=== PATIENT | female | born 1990 | race Caucasian/White ===

== ENCOUNTER 2024-08-09 17:27 | Emergency (ER) | payer SELFPAY ==
[2024-08-09 17:30] VITALS: BP 119/83
--- NOTE | 2024-08-09 18:30 | ED.GENMED ---
History of Present Illness
General
Chief Complaint: Abdominal Symptoms
Source: patient
Exam Limitations: none
Time Seen by Provider: 08/09/24 18:28
Nursing documentation reviewed up to this point in time: agreed with
History of Present Illness
History of Present Illness:
Patient presents to ED secondary to sudden onset of bodyaches, chills, nausea, and inability to eat since last night. Denies headache. Denies sore throat. Denies coughing. Denies vomiting or diarrhea. Denies rash. Denies sick contact. Denies
recent travel. Patient otherwise is healthy, without any significant medical history. Upon arrival, patient is found to be febrile, which she was not aware of.
Past History
Past History
ED Past Medical History: Psychiatric and Other
ED Past Surgical History: Appendectomy
Patient has exhibited threatening behavior?: No
PSI?: No
Social History
Tobacco: Smoker
Alcohol: None
Drug: None
Personal: Single
Living: with roommate
Employment: Not employed
Family History
Family History: Other
Review of Systems
Review of Systems
Allergies reviewed?: Yes
All Other Systems: ROS reviewed and negative except as documented in HPI and ROS
Constitutional: Reports chills
EENT: Reports no symptoms
Respiratory: Reports no symptoms; Denies cough or trouble breathing
Cardiac: Reports no symptoms; Denies chest pain
ABD/GI: Reports nausea; Denies abdominal pain or diarrhea
: Reports no symptoms
Musculoskeletal: Reports muscle pain
Skin: Reports no symptoms
Neurological: Reports no symptoms; Denies dizzy or headache
Phy Exam
Physical Exam
Physical Exam:
Physical Exam
General: mild distress, not acutely ill. febrile
Head: nc/at. eomi
Neck: supple. no meningeal signs.
Heart: s1/s2 regular rate and rhythm, no murmur.
Lungs: no acute respiratory distress. clear bilaterally
Abdomen: normal bowel sounds. not tender.
Neuro: alert and oriented x 3. no focal neurological deficits
Skin: no rash
Psychiatric: well kept. interactive and cooperative
Extremities: no edema. no calf tenderness.
Course
Orders/Labs/Results
Orders:
Orders
08/09/24 17:33
Electrocardiogram (*1) Urgent
Reason for Study: Chest Pain
EKG- Treatment ONCE
Test Result ONCE
08/09/24 18:40
COVID-19 Antigen Urgent
Source: Nasal Swab
Complete Blood Count/With Diff Urgent
Comprehensive Metabolic Panel Urgent
HCG, Serum Qualitative Screen Urgent
Troponin I Urgent
Influenza A+B Rapid Molecular Urgent
BETI Source: Nasal Swab
Specimen Description:
08/09/24 18:56
0.9% Sodium Chloride 1000 ml [Nss] 1,000 ml IV BOLUS
Ketorolac [Toradol] 15 mg IV NOW STA
Ondansetron Injectable [Zofran] 4 mg IV NOW STA
Pantoprazole [Protonix IV] 40 mg IV NOW STA
Abnormal Lab Results
08/09/24
18:40
MCH 31.2 H pg
(27.0-31.0)
Absolute Lymphs (auto) 0.7 L 10^3/uL
(1.2-3.4)
Neutrophils % 75.7 H %
(42.2-75.2)
Lymphocytes % 14.8 L %
(20.5-51.1)
BUN 5 L mg/dl
(7-17)
Creatinine 0.5 L mg/dL
(0.6-1.0)
Glucose 111 H mg/dl
(70-99)
08/09/24 18:40
08/09/24 18:40
Vital Signs
Initial and Last Documented VS:
Initial Vital Signs
Temp Pulse Resp BP Pulse Ox
100.6 F H 97 18 119/83 97
08/09/24 17:30 08/09/24 17:30 08/09/24 17:30 08/09/24 17:30 08/09/24 17:30
Last Documented Vital Signs
Temp Pulse Resp BP Pulse Ox
100.6 F H 78 19 129/66 98
08/09/24 17:30 08/09/24 20:38 08/09/24 20:38 08/09/24 20:38 08/09/24 20:38
MDM/Problems Addressed
MDM/Problems Addressed:
History and exam consistent with symptoms, likely secondary to influenza. Patient otherwise remains hemodynamically stable and nontoxic-appearing. Patient will be discharged home with prescription for Tamiflu, to consider taking at home. Side
effects discussed as well of Tamiflu.
*Critical Care Note
Total Time (30-74mins, 75-104mins- exclusive of procedures): Not Applicable
ED Attending Note
-
Portions of this chart may have been created with voice recognition software.� Occasional wrong word or��sound alike� substitutions may have occurred due to the inherent limitations of voice recognition software.
Discharge Plan
Departure
Patient Disposition: Home (Routine Discharge)
Date of Disposition: 08/09/24
Time of Disposition: 20:06
Patient with high blood pressure during this ER visit?: No
Condition: Good
Discharge Problem:
Influenza
Instructions: Flu in adults - Discharge instructions
Prescriptions:
New
oseltamivir [Tamiflu] 75 mg capsule
75 mg PO BID 5 Days Qty: 10 0RF
ondansetron 4 mg Tablet,Disintegrating
4 mg PO TIDPRN PRN (Reason: nausea/vomiting) Qty: 12 0RF
No Action
gabapentin 800 mg Tablet
800 mg PO TID
bupropion HCl [Wellbutrin XL] 300 mg Tablet Extended Release 24 Hr
300 mg PO DAILY
methadone
PO DAILY
Patient Comments:
pt is on a 'blind taper' so she does not know how many mg she takes daily
Protonix
1 tab PO QPM
Patient Comments:
pt does not know mg
ondansetron 4 mg tablet,disintegrating
4 mg PO Q8H PRN (Reason: nausea and vomiting) Qty: 10 0RF
Referrals:
NONE,* [Family Provider] -
Activity Restrictions/Additional Instructions:
As discussed, please follow-up with your primary care physician with any further concerns.
Interventions
Interventions:
*Risk Screen - Suicide Last Done: 08/09/24 17:30
*General Assessment Last Done: 08/09/24 17:30
*Neglect/Abuse Screening Last Done: 08/09/24 17:30
ED- Fall Risk Assessment Last Done: 08/09/24 18:42
*ED COVID-19 Vaccine History Last Done: 08/09/24 17:30
*Nursing Disposition Last Done: 08/09/24 20:42
[facility] Assessment Last Done: 08/09/24 20:39
Discharge Date and Time
Discharge Date/Time: 08/09/24 20:44
Print Language: MONEGASQUE
[2024-08-09 18:55] LABS: % Basophils 0.2 % (0-2); % Eosinophils 0.2 % (0-6); % Immature Granulocytes 0.2 % (0-0.5); % Lymphocytes 14.8 % (20.5-51.1); % Monocytes 8.9 % (1.7-9.3); % Neutrophils 75.7 % (42.2-75.2); Absolute Lymphocytes 0.7 10^3/uL (1.2-3.4); Absolute Monocytes 0.4 10^3/uL (0.1-0.6); Absolute Neutrophils 3.7 10^3/uL (1.4-6.5); Hematocrit 39.4 % (37.0-47.0); Hemoglobin 13.9 g/dL (12.0-16.0); Mean Corp Hgb Conc. 35.3 g/dL (33.0-37.0); Mean Corpuscular Hgb 31.2 pg (27.0-31.0); Mean Corpuscular Volume 88.3 fL (81.0-99.0); Mean Platelet Volume 8.8 fL (7.4-10.4); Nucleated Red Blood Cells % 0 %; Platelet Count 180 10^3/uL (130-400); Red Blood Cell Count 4.46 10^6/uL (4.20-5.40); Red Cell Dist. Width 11.7 % (11.5-14.5); White Blood Cell Count 4.9 10^3/uL (4.8-10.8)
[2024-08-09] MEDS: NSS 1000 IV (19:05)
[2024-08-09] MEDS: TORADOL 15 MG IV (19:05)
[2024-08-09] MEDS: PROTONIX IV 40 MG IV (19:05)
[2024-08-09] MEDS: ZOFRAN 4 MG IV (19:05)
[2024-08-09 19:11] LABS: HCG, Serum Qualitative Screen Negative
[2024-08-09 19:18] LABS: ALT (SGPT) 30 U/L (0-35); AST (SGOT) 34 U/L (14-36); Albumin 4.4 g/dl (3.5-5.0); Alkaline Phosphatase 49 U/L (38-126); Blood Urea Nitrogen 5 mg/dl (7-17); COVID-19 Antigen Negative (Negative); Calcium 8.9 mg/dl (8.4-10.2); Carbon Dioxide 26 mmol/L (22-30); Chloride 102 mmol/L (98-107); Glucose 111 mg/dl (70-99); Potassium 3.9 mmol/L (3.5-5.1); Sodium 135 mmol/L (135-145); Total Bilirubin 0.5 mg/dl (0.2-1.3); Total Protein 7.4 g/dl (6.3-8.2); eGFR > 60.00
[2024-08-09 19:24] LABS: Troponin I < 0.012 ng/ml
[2024-08-09 20:38] VITALS: BP 129/66
== END 2024-08-09 20:44 | disposition home or self-care (01) ==
LOC: EMR 17:27
PROVIDERS: EMERGENCY PHYSICIAN Emergency Medicine
DX: J10.1 Influenza due to other identified influenza virus with other respiratory manifestations (principal); R11.0 Nausea; F17.200 Nicotine dependence, unspecified, uncomplicated; Z90.49 Acquired absence of other specified parts of digestive tract
CPT/HCPCS: 96374; 96375; 96361; 99284; 80053; 84484; 84703; 85025; 87502; 87811; 93005

== ENCOUNTER 2024-12-21 16:31 | Emergency (ER) | payer OTHER, SELFPAY ==
[2024-12-21 16:34] VITALS: BP 127/80
[2024-12-21 18:34] VITALS: BP 120/74
[2024-12-21 18:41] LABS: % Basophils 0.3 % (0-2); % Eosinophils 0.8 % (0-6); % Immature Granulocytes 0.2 % (0-0.5); % Lymphocytes 44.4 % (20.5-51.1); % Monocytes 9.9 % (1.7-9.3); % Neutrophils 44.4 % (42.2-75.2); Absolute Eosinophils 0.1 10^3/uL (0-0.7); Absolute Lymphocytes 2.7 10^3/uL (1.2-3.4); Absolute Monocytes 0.6 10^3/uL (0.1-0.6); Absolute Neutrophils 2.7 10^3/uL (1.4-6.5); Hematocrit 36.1 % (37.0-47.0); Mean Corpuscular Hgb 31.6 pg (27.0-31.0); Mean Corpuscular Volume 87.6 fL (81.0-99.0); Mean Platelet Volume 8.8 fL (7.4-10.4); Nucleated Red Blood Cells % 0 %; Platelet Count 198 10^3/uL (130-400); Red Blood Cell Count 4.12 10^6/uL (4.20-5.40); Red Cell Dist. Width 11.9 % (11.5-14.5); Urine Albumin Negative (Neg - Trace); Urine Bilirubin Negative (Negative); Urine Character Slightly Cloudy (Clear); Urine Color Yellow; Urine Glucose Negative (Negative); Urine Ketone Negative (Negative); Urine Leukocyte Negative (Negative); Urine Nitrite Negative (Negative); Urine Occult Blood Negative (Negative); Urine Specific Gravity 1.015 (<1.030); Urine Urobilinogen Negative (Neg - 1+)
[2024-12-21 19:00] VITALS: BP 124/62
[2024-12-21 19:02] LABS: HCG, Serum Qualitative Screen Negative
[2024-12-21 19:08] LABS: ALT (SGPT) 28 U/L (0-35); AST (SGOT) 29 U/L (14-36); Albumin 4.3 g/dl (3.5-5.0); Alkaline Phosphatase 29 U/L (38-126); Blood Urea Nitrogen 12 mg/dl (7-17); Calcium 9.2 mg/dl (8.4-10.2); Carbon Dioxide 25 mmol/L (22-30); Chloride 107 mmol/L (98-107); Glucose 84 mg/dl (70-99); Lipase 32 U/L (23-300); Sodium 137 mmol/L (135-145); Total Bilirubin 0.5 mg/dl (0.2-1.3); Total Protein 7.1 g/dl (6.3-8.2); eGFR > 60.00
--- NOTE | 2024-12-21 20:26 | ED.GENMED ---
History of Present Illness
General
Chief Complaint: Abdominal Pain
Source: patient
Exam Limitations: none
Time Seen by Provider: 12/21/24 18:00
Nursing documentation reviewed up to this point in time: agreed with
History of Present Illness
History of Present Illness:
34-year-old female with history of anxiety, appendectomy, in 2020 presents for left lower quadrant pain and bloating. States the left lower quadrant pain started about a week ago and has been dull and constant with intermittent stabbing
pains. 2 days ago she developed bloating and took gas pills with no help. Has been mildly nauseous at times. She denies fever, V/D/C. She states her appetite has been good. She had a normal bowel movement earlier today. She was here 2 nights
ago for same but left due to the long wait. She went home and took a Seroquel which she states helped her sleep that night.
Past History
Past History
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
ED Past Surgical History: Appendectomy
Patient has exhibited threatening behavior?: No
PSI?: No
Social History
Tobacco: Smoker
Alcohol: None
Drug: None
Personal: Single
Living: with family (Lives with her children)
Employment: Not employed
Family History
Family History: Other
Review of Systems
Review of Systems
Allergies reviewed?: Yes
All Other Systems: ROS reviewed and negative except as documented in HPI and ROS
Constitutional: Denies fever
Respiratory: Denies trouble breathing
Cardiac: Denies chest pain
ABD/GI: Reports abdominal pain and nausea; Denies vomiting, diarrhea, constipated or anorexia
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 She needs a [employer] doctor); Denies dysuria, frequency or difficulty voiding
Musculoskeletal: Reports no symptoms
Skin: Reports no symptoms
Neurological: Reports no symptoms
Phy Exam
Physical Exam
Physical Exam:
GENERAL: No acute distress. A&Ox3.
CONSTITUTIONAL: Afebrile.
EYES: clear, conjunctivae normal
ENMT: moist mucus membranes, Pharynx nl
RESPIRATORY: Regular respirations, nonlabored, lungs clear.
CARDIOVASCULAR: Regular rate and rhythm, no murmurs, no rubs.
GI: Soft, tender LLQ, normal BS
MUSCULOSKELETAL: Moves with ease. Well perfused.
SKIN: Warm, dry, pink
PSYCH: Normal mood and affect. Well kept, interactive and appropriate
NEUROLOGIC: Awake, alert and oriented. No focal neurological deficits
Course
Orders/Labs/Results
Orders:
Orders
12/21/24 18:15
CT Abd/Pel (IV only)-DH only Urgent
Comment:
Reason For Exam: LLQ pain
Test Result ONCE
12/21/24 18:33
Complete Blood Count/With Diff Urgent
Comprehensive Metabolic Panel Urgent
HCG, Serum Qualitative Screen Urgent
Lipase Urgent
Urinalysis Reflex To Culture Urgent
Date Specimen was Collected: 12/21/24
Time Specimen was Collected: 18:28
Abnormal Lab Results
12/21/24
18:33
RBC 4.12 L 10^6/uL
(4.20-5.40)
Hct 36.1 L %
(37.0-47.0)
MCH 31.6 H pg
(27.0-31.0)
Monocytes % 9.9 H %
(1.7-9.3)
Alkaline Phosphatase 29 L U/L
(38-126)
12/21/24 18:33
12/21/24 18:33
Vital Signs
Initial and Last Documented VS:
Initial Vital Signs
Temp Pulse Resp BP Pulse Ox
98.6 F 116 18 127/80 97
12/21/24 16:34 12/21/24 16:34 12/21/24 16:34 12/21/24 16:34 12/21/24 16:34
Last Documented Vital Signs
Temp Pulse Resp BP Pulse Ox
98.6 F 88 18 124/62 98
12/21/24 16:34 12/21/24 18:38 12/21/24 18:38 12/21/24 19:00 12/21/24 20:27
MDM/Problems Addressed
Differential Diagnosis Includes:
diverticulitis, constipation, ovarian cyst
MDM/Problems Addressed:
34-year-old female with history of anxiety, appendectomy, in 2020 presents for left lower quadrant pain and bloating. States the left lower quadrant pain started about a week ago and has been dull and constant with intermittent stabbing
pains. 2 days ago she developed bloating and took gas pills with no help. Has felt mildly nauseous at times. She denies fever, V/D/C. She states her appetite has been good. She had a normal bowel movement earlier today. She was here 2 nights
ago for same but left due to the long wait. She went home and took a Seroquel which she states helped her sleep at night.
Afebrile, NAD
7:15 PM:
CBC, CMP with no clinically significant abnormality
hCG negative
UA negative
8:45 PM:
CT abdomen pelvis with IV contrast radiology report read: IMPRESSION:
1. No significant acute abnormality identified in the abdomen or pelvis, as described above.
2. Mild splenomegaly.
Results discussed with patient, I hand wrote her referral for Dr. Schaffer [employer] on her discharge paper
Referred to GI. Rx for Zofran sent to her pharmacy
*Pulse Oximetry
SaO2: 98
Oxygen Mode of Delivery: Room air
Patient hypoxic: not evaluated
*Critical Care Note
Total Time (30-74mins, 75-104mins- exclusive of procedures): Not Applicable
ED Attending Note
-
Portions of this chart may have been created with voice recognition software.� Occasional wrong word or��sound alike� substitutions may have occurred due to the inherent limitations of voice recognition software.
Discharge Plan
Departure
Patient Disposition: Home (Routine Discharge)
Date of Disposition: 12/21/24
Time of Disposition: 20:12
Patient with high blood pressure during this ER visit?: No
Condition: Good
Discharge Problem:
Abdominal pain
Instructions: Abdominal Pain
Prescriptions:
New
ondansetron 4 mg tablet,disintegrating
4 mg PO Q8H PRN (Reason: nausea and vomiting) Qty: 14 0RF
No Action
gabapentin 800 mg Tablet
800 mg PO TID
bupropion HCl [Wellbutrin XL] 300 mg Tablet Extended Release 24 Hr
300 mg PO DAILY
methadone
PO DAILY
Patient Comments:
pt is on a 'blind taper' so she does not know how many mg she takes daily
Protonix
1 tab PO QPM
Patient Comments:
pt does not know mg
ondansetron 4 mg tablet,disintegrating
4 mg PO Q8H PRN (Reason: nausea and vomiting) Qty: 10 0RF
oseltamivir [Tamiflu] 75 mg capsule
75 mg PO BID 5 Days Qty: 10 0RF
ondansetron 4 mg Tablet,Disintegrating
4 mg PO TIDPRN PRN (Reason: nausea/vomiting) Qty: 12 0RF
Referrals:
Tammy Schaffer, DO [Active, Gynecology] - Next open appointment
UNKNOWN - PT DOES,NOT KNOW [Family Provider]
Sharron Galvez, DO [Active, Gastroenterology] - Next open appointment
Activity Restrictions/Additional Instructions:
As we discussed, nothing worrisome in your workup here today.
I have given you the name of a GI doctor to follow-up with if your stomach symptoms continue.
Interventions
Interventions:
*Risk Screen - Suicide Last Done: 12/21/24 16:39
*General Assessment Last Done: 12/21/24 18:38
*Neglect/Abuse Screening Last Done: 12/21/24 16:39
*ED- Fall Risk Assessment Last Done: 12/21/24 18:38
*ED COVID-19 Vaccine History Last Done: 12/21/24 18:38
*Nursing Disposition Last Done: 12/21/24 20:41
[facility] Assessment Last Done: 12/21/24 18:38
Discharge Date and Time
Discharge Date/Time: 12/21/24 20:41
Print Language: MALAY
== END 2024-12-21 20:41 | disposition home or self-care (01) ==
LOC: EMR 16:31
PROVIDERS: Registered Nurse; EMERGENCY PHYSICIAN Emergency Medicine
DX: R10.32 Left lower quadrant pain (principal); R14.0 Abdominal distension (gaseous); R16.1 Splenomegaly, not elsewhere classified; F17.200 Nicotine dependence, unspecified, uncomplicated; Z90.49 Acquired absence of other specified parts of digestive tract
CPT/HCPCS: 99284; 74177; 80053; 81003; 83690; 84703; 85025; Q9967